=== PATIENT | male | born 1985 | race Caucasian/White ===

== ENCOUNTER 2019-02-24 08:57 | Emergency (ER) | payer OTHER ==
[~2019-02-24] VITALS: Ht 175.3 cm; Wt 98.4 kg
[2019-02-24 09:01] VITALS: Ht 175.3 cm; Wt 98.4 kg
[2019-02-24 11:15] VITALS: BP 130/84
== END 2019-02-24 11:15 | disposition home or self-care (01) ==
LOC: ED 08:57
DX: J20.9 Acute bronchitis, unspecified (principal)

== ENCOUNTER 2020-03-26 12:41 | Emergency (ER) | payer OTHER ==
[~2020-03-26] VITALS: Ht 175.3 cm; Wt 83.9 kg
[2020-03-26 12:51] VITALS: Ht 175.3 cm; Wt 83.9 kg
[2020-03-26 17:06] VITALS: BP 128/86
== END 2020-03-26 16:30 | disposition home or self-care (01) ==
LOC: ED 12:41
DX: S60.359A Superficial foreign body of unspecified thumb, initial encounter (principal); S60.551A Superficial foreign body of right hand, initial encounter; W45.8XXA Other foreign body or object entering through skin, initial encounter; Y93.89 Activity, other specified; Y92.89 Other specified places as the place of occurrence of the external cause; Y99.8 Other external cause status
CPT/HCPCS: 90715